=== PATIENT | male | born 1955 | race Caucasian/White ===

== ENCOUNTER 2018-06-25 15:03 | Observation (INO) ==
--- NOTE | 2018-06-25 18:20 | ED ---
HPI General Chief complaint: Skin/Abscess/Foreign Body Stated complaint: Leg pain Time Seen by Provider: 06/25/18 18:18 Source: patient Mode of arrival: ambulatory Limitations: no limitations History of Present Illness HPI narrative: Patient has mass that he is had over his right lateral mid thigh I ongoing for the past 10 years or so. Patient since last night started to feel sharp pain over the right lateral mass. Patient rates it as a 10 out of 10 pain, sharp... Patient stated that he has never had pain from this lump and so he never has had it checked out. Patient has no primary care decision. Denies any previous surgeries and also denies any previous allergy to medications. Onset (ago): year(s) Location: right and lower extremity Radiation: non-radiation Severity: severe Severity scale (1-10): 8 Quality: sharp Pain Consistency: constant Relieving factors: none Exacerbating factors: none and movement Associated symptoms: denies other symptoms Treatments prior to arrival: none Related Data Home Medications Medication Instructions Recorded Confirmed No Known Home Medications 06/25/18 06/25/18 Previous Rx's Medication Instructions Recorded cephalexin 500 mg PO Q8HR 10 Days cap 06/27/18 hydrocodone-acetaminophen 1 tab PO Q4H PRN #15 tab 06/27/18 Allergies Allergy/AdvReac Type Severity Reaction Status Date / Time No Known Allergies Allergy Verified 06/26/18 07:21 Review of Systems ROS: all other systems reviewed are negative PMFSH History History Provided By: Patient Family History Family History Brother Head and neck cancer Brother Head and neck cancer Mother Family history of [place] (myocardial infarction) Father Diabetes mellitus Social History Social History Substance History: No History of Abuse Second Hand Smoke Exposure: Yes (friends) Smoking Status: Current every day smoker Tobacco Type: Cigarettes How Often Do You Have a Drink Containing Alcohol: 4 or more times a week Recent Travel in [place] within the Last 8 Weeks: No Recent Out of Country Travel within the Last 8 Weeks: No Exam Narrative Exam Narrative: GENERAL: Well-nourished, well-developed patient in no apparent distress. SKIN: Warm and dry. HEAD: Atraumatic. Normocephalic. EYES: Pupils equal and round. No scleral icterus. No injection or drainage. ENT: No nasal bleeding or discharge. Mucous membranes pink and moist. NECK: Trachea midline. No JVD. CARDIOVASCULAR: Regular rate and rhythm. no rubs or gallops RESPIRATORY: No accessory muscle use. Clear to auscultation. Breath sounds equal bilaterally. GASTROINTESTINAL: Abdomen soft, non-tender, nondistended. No rebound or guarding MUSCULOSKELETAL: Extremities without clubbing, cyanosis, or edema. No obvious deformities. Patient has a 30 cm x 18 centimeter oblong shaped mass over the mid lateral femur exquisitely tender and unable to examine much better NEUROLOGICAL: Awake and alert. No obvious cranial nerve deficits. Motor grossly within normal limits. Five out of 5 muscle strength in the arms and legs. Normal speech. PSYCHIATRIC: Appropriate mood and affect; insight and judgment normal. Course Initial Documented Vital Signs Temperature 97.3 F L 06/25/18 15:21 Pulse Rate 64 06/25/18 15:21 Respiratory Rate 16 06/25/18 15:21 Blood Pressure 141/73 H 06/25/18 15:21 Pulse Oximetry 99 06/25/18 15:21 Last Documented Vital Signs Temperature 97.8 F 06/27/18 12:00 Pulse Rate 88 06/27/18 12:00 Respiratory Rate 18 06/27/18 12:00 Blood Pressure 108/61 06/27/18 12:00 Pulse Oximetry 98 06/27/18 12:00 Sign Out Sign Out Data: Patient Sign Out occurred on 06/25/18 at 19:40. Patient's care was discussed, and care was transferred from Dony Felix to Diomedes Patel DO. Sign Out Comment: PATIENT HAS A LARGE RIGHT LATERAL MID FEMUR MASS FOR 10 YRS GROWING..BUT NOW PAINFUL FOR LAST 2 DAYS, PENDING LABS/CT AND DISPO Last updated by Dony Felix at 06/25/18 18:57 Medical Decision Making MDM Narrative Medical decision making narrative: Patient with large cystic mass on the right lateral thigh confirmed by CT. Will be admitted for surgical consultation and removal. Medical Screen Exam Complete: Yes Emergency Medical Condition: Yes Differential Diagnosis Differential Diagnosis: Cancer versus atypical lipoma versus myosarcoma versus liposarcoma versus bone cancer versus abscess versus cellulitis Medical Records Medical records reviewed: Yes I reviewed the patient's medical records. No previous records available on [facility] Lab Data Lab results reviewed: Yes I reviewed the patient's lab results. Result diagrams: 06/27/18 09:18 08/23/18 09:18 Lab Results 06/25/18 06/25/18 06/25/18 Range/Units 19:28 19:28 19:28 WBC 9.0 (4.0-11.0) th/mm3 RBC 4.88 (4.50-5.90) mil/mm3 Hgb 14.7 (13.0-17.0) gm/dL Hct 43.6 (39.0-51.0) % MCV 89.3 (80.0-100.0) fL MCH 30.1 (27.0-34.0) pg MCHC 33.7 (32.0-36.0) % RDW 13.5 (11.6-17.2) % Plt Count 314 (150-450) th/mm3 MPV 9.2 (7.0-11.0) fL Neut % (Auto) 78.6 H (16.0-70.0) % Lymph % (Auto) 11.7 (9.0-44.0) % Garrett % (Auto) 9.2 H (0.0-8.0) % Eos % (Auto) 0.2 (0.0-4.0) % Baso % (Auto) 0.3 (0.0-2.0) % Neut # (Auto) 7.1 (1.8-7.7) th/mm3 Lymph # (Auto) 1.1 (1.0-4.8) th/mm3 Garrett # (Auto) 0.8 (0.0-0.9) th/mm3 Eos # (Auto) 0.0 (0.0-0.4) th/mm3 Baso # (Auto) 0.0 (0.0-0.2) th/mm3 WBC Differential . Differential Comment Auto diff final PT 10.0 (9.8-11.6) sec INR 1.0 Ratio APTT 26.1 (24.3-30.1) sec Sodium (136-145) meq/L Potassium (3.5-5.1) meq/L Chloride (98-107) meq/L Carbon Dioxide (21.0-32.0) meq/L Anion Gap (5-15) meq/L BUN (7-18) mg/dL Creatinine (0.60-1.30) mg/dL Estimated GFR (>89) mL/min Random Glucose (74-106) mg/dL Calcium (8.5-10.1) mg/dL Total Bilirubin (0.2-1.0) mg/dL AST (15-37) U/L ALT (12-78) U/L Alkaline Phosphatase (45-117) U/L Total Protein (6.4-8.2) g/dL Albumin (3.4-5.0) g/dL Lipase 157 (73-393) U/L 06/25/18 06/27/18 06/27/18 Range/Units 19:28 09:18 09:18 WBC 5.5 (4.0-11.0) th/mm3 RBC 4.35 L (4.50-5.90) mil/mm3 Hgb 13.0 (13.0-17.0) gm/dL Hct 39.3 (39.0-51.0) % MCV 90.2 (80.0-100.0) fL MCH 30.0 (27.0-34.0) pg MCHC 33.2 (32.0-36.0) % RDW 13.7 (11.6-17.2) % Plt Count 246 (150-450) th/mm3 MPV 8.8 (7.0-11.0) fL Neut % (Auto) 78.4 H (16.0-70.0) % Lymph % (Auto) 9.2 (9.0-44.0) % Garrett % (Auto) 10.8 H (0.0-8.0) % Eos % (Auto) 1.2 (0.0-4.0) % Baso % (Auto) 0.4 (0.0-2.0) % Neut # (Auto) 4.3 (1.8-7.7) th/mm3 Lymph # (Auto) 0.5 L (1.0-4.8) th/mm3 Garrett # (Auto) 0.6 (0.0-0.9) th/mm3 Eos # (Auto) 0.1 (0.0-0.4) th/mm3 Baso # (Auto) 0.0 (0.0-0.2) th/mm3 WBC Differential . Differential Comment Auto diff final PT (9.8-11.6) sec INR Ratio APTT (24.3-30.1) sec Sodium 137 142 (136-145) meq/L Potassium 3.9 3.5 (3.5-5.1) meq/L Chloride 99 105 (98-107) meq/L Carbon Dioxide 24.9 27.0 (21.0-32.0) meq/L Anion Gap 13 10 (5-15) meq/L BUN 9 8 (7-18) mg/dL Creatinine 0.80 0.82 (0.60-1.30) mg/dL Estimated GFR Greater than 89 Greater than 89 (>89) mL/min Random Glucose 93 122 H (74-106) mg/dL Calcium 9.0 8.5 (8.5-10.1) mg/dL Total Bilirubin 0.9 0.7 (0.2-1.0) mg/dL AST 18 14 L (15-37) U/L ALT 20 15 (12-78) U/L Alkaline Phosphatase 72 59 (45-117) U/L Total Protein 8.2 6.5 D (6.4-8.2) g/dL Albumin 4.6 3.4 D (3.4-5.0) g/dL Lipase (73-393) U/L Imaging Data Radiologist's impression: Femur CT 06/25/18 18:53 CONCLUSION: 1. Greater than 16 cm subcutaneous lesion in the lateral thigh contains an air- fluid level and multiple flecks of gas. The findings suggest this lesion may be infected or necrotic. Chest X-Ray 06/25/18 18:54 CONCLUSION: The lungs are clear. Discharge Plan Discharge Disposition Patient Disposition: 30 Still Patient Discharge Condition Condition: Good Discharge Order Discharge Orders: Discharge Order (Routine); Ordered 06/27/18 Ordered By: Warren Blandon Discharge Details Anticipated Discharge Date: 06/27/18 Discharge Comment: Follow up with [facility] traffic control specialist Doctor Abdon Castro scheduled for 07/02/18 Diagnosis: Localized swelling, mass and lump, right lower limb Physicians Team ED Provider: Diomedes Patel Primary Care Provider: UNKNOWN, Attending Provider: Warren Blandon Other Providers: Abdon Castro Status ED Status: Left Department Discharge Information Discharge Date/Time: 06/26/18 10:45
[2018-06-25] MEDS ORDERED: Morphine Inj 4 MG/ML Vial IV.PUSH ONE (18:53)
--- NOTE | 2018-06-25 19:58 | XR ---
EXAM DATE: 06/25/2018 7:35 PM EDT AGE/SEX: 63 years / Male INDICATIONS: Evaluate lung status. Patient being seen for a femur abscess. CLINICAL DATA: This is the patient's initial encounter. Patient reports that signs and symptoms have been present for 1 week and indicates a pain score of 0/10. MEDICAL/SURGICAL HISTORY: None. None. COMPARISON: No prior exams available for comparison. FINDINGS: A single AP view of the chest demonstrates the lungs to be symmetrically aerated without evidence of mass, infiltrate or effusion. The cardiomediastinal contours are unremarkable. Osseous structures a re intact. CONCLUSION: The lungs are clear. Electronically signed by: Yassine Birmingham MD 06/25/2018 7:56 PM EDT
[2018-06-25 20:06] LABS: Baso % (Auto) 0.3 % (0.0-2.0); Eos % (Auto) 0.2 % (0.0-4.0); Hematocrit 43.6 % (39.0-51.0); Hemoglobin 14.7 gm/dL (13.0-17.0); Lymph # (Auto) 1.1 th/mm3 (1.0-4.8); Lymph % (Auto) 11.7 % (9.0-44.0); Mean Corpuscular HGB Conc 33.7 % (32.0-36.0); Mean Corpuscular Hemoglobin 30.1 pg (27.0-34.0); Mean Corpuscular Volume 89.3 fL (80.0-100.0); Mean Platelet Volume 9.2 fL (7.0-11.0); Mono # (Auto) 0.8 th/mm3 (0.0-0.9); Mono % (Auto) 9.2 % (0.0-8.0); Neut # (Auto) 7.1 th/mm3 (1.8-7.7); Neut % (Auto) 78.6 % (16.0-70.0); Platelet Count 314 th/mm3 (150-450); Red Blood Count 4.88 mil/mm3 (4.50-5.90); Red Cell Distribution Width 13.5 % (11.6-17.2)
[2018-06-25 20:13] LABS: Activated Partial Thrombo Time 26.1 sec (24.3-30.1)
[2018-06-25 20:26] LABS: Albumin 4.6 g/dL (3.4-5.0); Anion Gap 13 meq/L (5-15); Aspartate Aminotransferase 18 U/L (15-37); Blood Urea Nitrogen 9 mg/dL (7-18); Carbon Dioxide 24.9 meq/L (21.0-32.0); Chloride 99 meq/L (98-107); Glomerular Filtration Rate Greater Than 89 mL/min (>89); Glucose,Random 93 mg/dL (74-106); Potassium 3.9 meq/L (3.5-5.1); Sodium 137 meq/L (136-145)
[2018-06-25 20:29] LABS: Alanine Aminotransferase 20 U/L (12-78); Alkaline Phosphatase 72 U/L (45-117); Total Protein 8.2 g/dL (6.4-8.2)
--- NOTE | 2018-06-25 21:51 | CT ---
EXAM DATE: 06/25/2018 9:32 PM EDT AGE/SEX: 63 years / Male INDICATIONS: Painful mass on right femur. Patient states he has had it for eleven years but it has n ever been painful before. CLINICAL DATA: This is the patient's initial encounter. Patient reports that signs and symptoms have been present for > 1 year and indicates a pain score of 10/10. MEDICAL/SURGICAL HISTORY: None. None. RADIATION DOSE: 8.23 CTDI (mGy) COMPARISON: No prior exams available for comparison. TECHNIQUE: Multiple contiguous axial images were acquired using a multirow detector CT scanner after the intravenous administration of 85 ml Omnipaque 350 (iohexol) nonionic water-soluble contrast as a single exam dose. Multiplanar reconstruction was performed in the sagittal and coronal planes. Usi ng automated exposure control and adjustment of the mA and/or kV according to patient size, radiation dose was kept as low as reasonably achievable to obtain optimal diagnostic quality images. DICOM fo rmat image data is available electronically for review and comparison. FINDINGS: There is a mass in the lateral right mid thigh in the subcutaneous soft tissues which measures 16.8 cm in superior/inferior extent at 8.1 cm in width. The peripheral margins are smooth. There is an air -fluid level within this lesion and multiple flecks of gas within the fluid portion. There is a satel lite lesion present medial and posterior to the midportion which measures 2.5 cm, probably connecting to the main lesion, and also containing multiple flecks of gas. This lesion flattens the lateral thi gh musculature, but no evidence of extension into the musculature. The femur is grossly intact withou t evidence of periosteal reaction or deformity. CONCLUSION: 1. Greater than 16 cm subcutaneous lesion in the lateral thigh contains an air-fluid level and multi ple flecks of gas. The findings suggest this lesion may be infected or necrotic. Electronically signed by: Yassine Birmingham MD 06/25/2018 9:50 PM EDT
[2018-06-26] MEDS ORDERED: Bisacodyl 10 MG Supp RECTAL PRN (00:50)
[2018-06-26] MEDS ORDERED: Acetaminophen 325 MG Tablet PO PRN (00:50)
[2018-06-26] MEDS ORDERED: Temazepam 15 MG Capsule PO PRN (00:50)
[2018-06-26] MEDS ORDERED: Morphine Inj 4 MG/ML Vial IV.PUSH PRN (01:03)
[2018-06-26] MEDS ORDERED: HYDROmorphone PF Inj 2 MG/ML Vial IV.PUSH ONE (02:01)
[2018-06-26] MEDS ORDERED: Melatonin 5 MG Tablet PO PRN (02:02)
--- NOTE | 2018-06-26 02:04 | P.HPIM ---
History of Present Illness Service: [facility] Primary Care Physician: UNKNOWN Chief Complaint: Right upper thigh pain/mass History of Present Illness: Mr. Parker is a 63 y/o male with no significant medical history who presented to the ER on 06/25/18 complaining of severe pain and discoloration of a mass he' s had on his right thigh for 10 years. The patient was found to have a large mass on right lateral thigh in the subcutaneous tissue measuring > 16 cm with an air-fluid level and multiple flecks of gas on femur CT. The patient is seen in his ER room. He reports that he's had this mass on his right thigh for 10 years and it's "not really bothered" me. However, last night , he accidentally hit it against some furniture and it has been increasingly painful, become harder in consistency, and has become discolored since. IV morphine given in ER brought the pain from a 10/10 to a 5/10. Review of Systems All other systems reviewed negative except as stated in HPI PMFSH - History History Provided By: Patient, Family Member - Medical History Medical History: Medical History (Last Updated 06/26/18 @ 03:19 by KING Rodney) History of dental problems - Surgical History Surgical History: Surgical History (Last Updated 06/26/18 @ 03:23 by KING Rodney) No history of previous surgery - Family History Family History: Family History (Last Updated 06/26/18 @ 03:21 by KING Rodney) Brother Head and neck cancer Brother Head and neck cancer Mother Family history of [place] (myocardial infarction) Father Diabetes mellitus - Tobacco History Second Hand Smoke Exposure: Yes Tobacco Use In Past 30 Days: Yes Smoking Status: Current every day smoker Tobacco Type: Cigarettes - Alcohol History How Often Do You Have a Drink Containing Alcohol: 4 or more times a week (daily use - beer) - Travel History Recent Travel in the [place] Within the Last 8 Weeks: No Recent Travel Out of the Country Within the Last 8 Weeks: No - Immunization History Tetanus Immunization: >5 Years Medications and Allergies Active Medications: Active Medications Acetaminophen (Tylenol) 650 mg PO Q4H PRN PRN Reason: Temp > 100.4/pain Hydrocodone Bitart/Acetaminophen ([place] 5/325) 1 tab PO Q4H PRN PRN Reason: pain > 4 Al Hydroxide/Mg Hydroxide (Milk Of Magnesia Liq) 30 ml PO Q12H PRN PRN Reason: Mild Constipation Bisacodyl (Dulcolax Supp) 10 mg RECTAL DAILY PRN PRN Reason: SEVERE CONSITIPATION Hydromorphone HCl (Dilaudid Pf Inj) 1 mg IV.PUSH ONCE ONE Stop: 06/26/18 02:02 Melatonin (Melatonin) 5 mg PO HS PRN PRN Reason: INSOMNIA Morphine Sulfate (Morphine Inj) 2 mg IV.PUSH Q3H PRN PRN Reason: BREAKTHROUGH PAIN Ondansetron HCl (Zofran Inj) 4 mg IV.PUSH Q6H PRN PRN Reason: NAUSEA OR VOMITING Sennosides (Senokot) 17.2 mg PO Q12H PRN PRN Reason: Moderate Constipation Sodium Chloride (Ns Flush) 2 ml IV.FLUSH UNSCH PRN PRN Reason: FLUSH AFTER USING IV ACCESS Temazepam (Restoril) 15 mg PO HS PRN PRN Reason: INSOMNIA Allergies Allergy/AdvReac Type Severity Reaction Status Date / Time No Known Allergies Allergy Unverified 06/25/18 18:53 Home Medications Medication Instructions Recorded Confirmed Type No Known Home Medications 06/25/18 06/25/18 History Exam Vital signs: Vital Signs 06/25/18 15:21 Temperature 97.3 F L Pulse Rate 64 Respiratory Rate 16 Blood Pressure 141/73 H Pulse Oximetry 99 Intake & Output 06/25/18 06/25/18 06/26/18 06:59 18:59 06:59 Weight 68.039 kg - Constitutional no acute distress, thin - Routine Respiratory Exam Present: CTA bilaterally. Absent: wheezes, crackles - Routine Cardiovascular Exam Present: RRR, S1, S2. Absent: murmur, gallop, rubs - Routine Abdominal Exam Present: soft, normoactive bowel sounds. Absent: tenderness, distended - Routine Extremities Exam Present: pulses intact. Absent: edema Comments: large hard mass to right thigh with central area with purple discoloration and erythema on peripheral area. Not hot to touch. - Routine Skin Exam Present: dry, warm - Routine Neurological Exam Present: alert, oriented X3 Results - Labs CBC & Chem 7: 06/25/18 19:28 06/25/18 19:28 Labs: Short CBC 06/25/18 Range/Units 19:28 WBC 9.0 (4.0-11.0) th/mm3 Hgb 14.7 (13.0-17.0) gm/dL Hct 43.6 (39.0-51.0) % Plt Count 314 (150-450) th/mm3 BMP 06/25/18 19:28 Sodium 137 Potassium 3.9 Chloride 99 Carbon Dioxide 24.9 BUN 9 Creatinine 0.80 Calcium 9.0 Liver Function 06/25/18 Range/Units 19:28 Total Bilirubin 0.9 (0.2-1.0) mg/dL AST 18 (15-37) U/L ALT 20 (12-78) U/L Alkaline Phosphatase 72 (45-117) U/L Albumin 4.6 (3.4-5.0) g/dL - Imaging Impressions Femur CT 06/25/18 18:53 CONCLUSION: 1. Greater than 16 cm subcutaneous lesion in the lateral thigh contains an air- fluid level and multiple flecks of gas. The findings suggest this lesion may be infected or necrotic. Chest X-Ray 06/25/18 18:54 CONCLUSION: The lungs are clear. Caprini VTE Risk Assessment Caprini VTE Risk Assessment: Moderate/High Risk (score >= 2) Caprini Risk Assessment Model: Point Value = 1 Point Value = 2 Point Value = 3 Point Value = 5 Age 41-60 Minor surgery BMI > 25 kg/m2 Swollen legs Varicose veins or History of unexplained or recurrent spontaneous Oral contraceptives or hormone replacement Sepsis (< 1 month) Serious lung disease, including pneumonia (< 1 month) Abnormal pulmonary function Acute myocardial infarction Congestive heart failure (< 1 month) History of inflammatory bowel disease Medical patient at bed rest Age 61-74 Arthroscopic surgery Major open surgery (> 45 min) Laparoscopic surgery (> 45 min) Malignancy Confined to bed (> 72 hours) Immobilizing plaster cast Central venous access Age >= 75 History of VTE Family history of VTE Factor V Leiden Prothrombin [id number] Lupus anticoagulant Anticardiolipin antibodies Elevated serum homocysteine Heparin-induced thrombocytopenia Other congenital or acquired thrombophilia Stroke (< 1 month) Elective arthroplasty Hip, pelvis, or leg fracture Acute spinal cord injury (< 1 month) Prophylaxis Regimen: Total Risk Factor Score Risk Level Prophylaxis Regimen 0-1 Low Early ambulation 2 Moderate Order ONE of the following: *Sequential Compression Device (SCD) *Heparin 5000 units SQ BID 3-4 Higher Order ONE of the following medications: *Heparin 5000 units SQ TID *Enoxaparin/Lovenox 40 mg SQ daily (WT < 150 kg, CrCl > 30 mL/min) *Enoxaparin/Lovenox 30 mg SQ daily (WT < 150 kg, CrCl > 10-29 mL/min) *Enoxaparin/Lovenox 30 mg SQ BID (WT < 150 kg, CrCl > 30 mL/min) AND/OR *Sequential Compression Device (SCD) 5 or more Highest Order ONE of the following medications: *Heparin 5000 units SQ TID (Preferred with Epidurals) *Enoxaparin/Lovenox 40 mg SQ daily (WT < 150 kg, CrCl > 30 mL/min) *Enoxaparin/Lovenox 30 mg SQ daily (WT < 150 kg, CrCl > 10-29 mL/min) *Enoxaparin/Lovenox 30 mg SQ BID (WT < 150 kg, CrCl > 30 mL/min) AND *Sequential Compression Device (SCD) Assessment and Plan - Plan Mr. Parker is a 63 y/o male with no significant medical history who presented to the ER on 06/25/18 complaining of severe pain and discoloration of a mass he' s had on his right thigh for 10 years. The patient was found to have a large mass on right lateral thigh in the subcutaneous tissue measuring > 16 cm with an air-fluid level and multiple flecks of gas on femur CT. Right thigh mass - consult orthopedic surgery to evaluate mass for possible surgical drainage - Analgesia: [place] 5/325 mg q4h prn, IV morphine for breakthrough - may need upward titration for adequate pain control Alcohol abuse - [facility] protocol DVT prophylaxis - SCDs Discussed Condition With: Patient, patient's , and Dr. Rivera
[2018-06-26] MEDS ORDERED: LORazepam 1 MG Tablet PO PRN (02:05)
[2018-06-26] MEDS ORDERED: Haloperidol Inj 5 MG/ML Ampul IV.PUSH PRN (02:05)
--- NOTE | 2018-06-26 08:40 | P.CONGS ---
HPI Gen Surgery Consult Note Consult date: 06/26/18 Reason for consult: other (RIGHT thigh mass) Requesting physician: Christy Chandler Narrative: This is a 63 year old male with no known past medical history who presents to the ED with complaints of RIGHT thigh pain to a mass that has been increasing in size over the past 10 years. It never caused him any pain until Sunday night when he bumped into the sharp corner of a desk. It did not puncture the area. He developed increase pain and bruising over the area. He denies any fever or chills. A General Surgery consultation has been requested for incision and drainage. Review of Systems Constitutional: Denies body ache(s), Denies chills, Denies fever(s) Eyes: Denies blurry vision Ears, Nose, Mouth, and Throat: Denies dizziness, Denies headache(s) Cardiovascular: Denies chest pain, Denies chest pain at rest, Denies chest pain with activity Respiratory: Denies chest congestion, Denies cough Gastrointestinal: Denies abdominal pain, Denies nausea, Denies vomiting Genitourinary: Denies urinary frequency Musculoskeletal: Reports other (RIGHT thigh pain ) Skin/Breast: Reports unusual bruising (RIGHT thigh ), Denies bleeding lesions Neurologic: Denies numbness, Denies restless legs Psychiatric: Denies anxiety, Denies depression Endocrine: Denies cold intolerance, Denies heat intolerance Hematologic/Lymphatic: Denies easy bleeding Allergic/Immunologic: Denies GI upset with certain foods PMFSH - History History Provided By: Patient - Medical History Medical History: Medical History (Last Reviewed 06/26/18 @ 08:37 by KING Govea) History of dental problems No significant medical problems - Surgical History Surgical History: Surgical History (Last Reviewed 06/26/18 @ 08:37 by KING Govea) No history of previous surgery - Family History Family History: Family History (Last Updated 06/26/18 @ 03:21 by KING Rodney) Brother Head and neck cancer Brother Head and neck cancer Mother Family history of VT (myocardial infarction) Father Diabetes mellitus - Tobacco History Second Hand Smoke Exposure: Yes (friends) Tobacco Use In Past 30 Days: Yes Smoking Status: Current every day smoker Tobacco Type: Cigarettes - Alcohol History How Often Do You Have a Drink Containing Alcohol: 4 or more times a week - Substance Use History Substance History: No History of Abuse - Travel History Recent Travel in the [place] Within the Last 8 Weeks: No Recent Travel Out of the Country Within the Last 8 Weeks: No - Immunization History Tetanus Immunization: >5 Years Hx Influenza Vaccine This Season: No Medications and Allergies Active Medications: Active Medications Acetaminophen (Tylenol) 650 mg PO Q4H PRN PRN Reason: Temp > 100.4/pain Al Hydroxide/Mg Hydroxide (Milk Of Magnesia Liq) 30 ml PO Q12H PRN PRN Reason: Mild Constipation Bisacodyl (Dulcolax Supp) 10 mg RECTAL DAILY PRN PRN Reason: SEVERE CONSITIPATION Flumazenil (Romazecon Inj) 0.2 mg IV.PUSH Q1M PRN PRN Reason: OVERSEDATION Haloperidol Lactate (Haldol Inj) 1 mg IV.PUSH Q15M PRN PRN Reason: for severe agitation Hydromorphone HCl (Dilaudid Pf Inj) 1 mg IV.PUSH Q3H PRN PRN Reason: pain > 5 Lorazepam (Ativan) 1 mg PO Q4H PRN PRN Reason: for CIWA 8-10 Lorazepam (Ativan) 2 mg PO Q2H PRN PRN Reason: for CIWA 11-14 Lorazepam (Ativan Inj) 2 mg IV.PUSH Q2H PRN PRN Reason: for CIWA 11-14 Lorazepam (Ativan Inj) 2 mg IV.PUSH Q1H PRN PRN Reason: for CIWA 15-20 Lorazepam (Ativan Inj) 1 mg IV.PUSH Q4H PRN PRN Reason: for CIWA 8-10 Lorazepam (Ativan Inj) 2 mg IV.PUSH Q15M PRN PRN Reason: for CIWA > 20 Melatonin (Melatonin) 5 mg PO HS PRN PRN Reason: INSOMNIA Ondansetron HCl (Zofran Inj) 4 mg IV.PUSH Q6H PRN PRN Reason: NAUSEA OR VOMITING Sennosides (Senokot) 17.2 mg PO Q12H PRN PRN Reason: Moderate Constipation Sodium Chloride (Ns Flush) 2 ml IV.FLUSH UNSCH PRN PRN Reason: FLUSH AFTER USING IV ACCESS Allergies Allergy/AdvReac Type Severity Reaction Status Date / Time No Known Allergies Allergy Verified 06/26/18 07:21 Home Medications Medication Instructions Recorded Confirmed Type No Known Home Medications 06/25/18 06/25/18 History Exam Vital signs: Vital Signs 06/25/18 15:21 06/26/18 03:30 06/26/18 07:10 Temperature 97.3 F L 98.1 F Pulse Rate 64 68 Respiratory Rate 16 15 18 Blood Pressure 141/73 H 102/67 Pulse Oximetry 99 99 06/26/18 07:30 Temperature 98 F Pulse Rate 66 Respiratory Rate 17 Blood Pressure 106/71 Pulse Oximetry 99 Intake & Output 06/25/18 06/26/18 06/26/18 18:59 06:59 18:59 Weight 68.039 kg Narrative: GENERAL: Alert and awake 63 year old male resting in bed in no acute distress. SKIN: Large RIGHT lateral mass with swelling and bruising; no puncture site; no drainage; tender. HEAD: Atraumatic. Normocephalic. EYES: Pupils equal and round. No scleral icterus. No injection or drainage. ENT: No nasal bleeding or discharge. Mucous membranes pink and moist. NECK: Trachea midline. CARDIOVASCULAR: Regular rate and rhythm. RESPIRATORY: No accessory muscle use. Clear to auscultation. Breath sounds equal bilaterally. GASTROINTESTINAL: Abdomen soft, non-tender, nondistended. MUSCULOSKELETAL: Extremities without clubbing, cyanosis, or edema. No obvious deformities except what is noted above under skin. NEUROLOGICAL: Awake and alert. No obvious cranial nerve deficits. Motor grossly within normal limits. Five out of 5 muscle strength in the arms and legs. Normal speech. PSYCHIATRIC: Appropriate mood and affect; insight and judgment normal. Results - Labs 06/25/18 19:28 06/25/18 19: Laboratory Results WBC 9.0 th/mm3 (4.0-11.0) 06/25/18 19: RBC 4.88 mil/mm3 (4.50-5.90) 06/25/18: Hgb 14.7 gm/dL (13.0-17.0) 06/25/18: Hct 43.6 % (39.0-51.0) 06/25/18 19: MCV 89.3 fL (80.0-100.0) 06/25/18: MCH 30.1 pg (27.0-34.0) 06/25/18 19: MCHC 33.7 % (32.0-36.0) 06/25/18: RDW 13.5 % (11.6-17.2) 06/25/18: Plt Count 314 th/mm3 (150-450) 06/25/18: MPV 9.2 fL (7.0-11.0) 06/25/18: Neut % (Auto) 78.6 % (16.0-70.0) H 06/25/18: Lymph % (Auto) 11.7 % (9.0-44.0) 06/25/18: [place] % (Auto) 9.2 % (0.0-8.0) H 06/25/18: Eos % (Auto) 0.2 % (0.0-4.0) 06/25/18 Baso % (Auto) 0.3 % (0.0-2.0) 06/25/18 Neut # (Auto) 7.1 th/mm3 (1.8-7.7) 06/25/18: Lymph # (Auto) 1.1 th/mm3 (1.0-4.8) 06/25/18: [place] # (Auto) 0.8 th/mm3 (0.0-0.9) 06/25/18: Eos # (Auto) 0.0 th/mm3 (0.0-0.4) 06/25/18 Baso # (Auto) 0.0 th/mm3 (0.0-0.2) 06/25/18 WBC Differential . 06/25/18 Differential Comment Auto diff final 06/25/18 PT 10.0 sec (9.8-11.6) 06/25/18: INR 1.0 Ratio 06/25/18: APTT 26.1 sec (24.3-30.1) 06/25/18: Sodium 137 meq/L (136-145) 06/25/18: Potassium 3.9 meq/L (3.5-5.1) 06/25/18: Chloride 99 meq/L (98-107) 08/21/18 19:28 Carbon Dioxide 24.9 meq/L (21.0-32.0) 06/25/18 19:28 Anion Gap 13 meq/L (5-15) 06/25/18 19:28 BUN 9 mg/dL (7-18) 06/25/18 19:28 Creatinine 0.80 mg/dL (0.60-1.30) 06/25/18 19:28 Estimated GFR Greater than 89 mL/min (>89) 06/25/18 19:28 Random Glucose 93 mg/dL (74-106) 06/25/18 19:28 Calcium 9.0 mg/dL (8.5-10.1) 06/25/18 19: Total Bilirubin 0.9 mg/dL (0.2-1.0) 06/25/18: AST 18 U/L (15-37) 06/25/18 19: ALT 20 U/L (12-78) 06/25/18 19:28 Alkaline Phosphatase 72 U/L (45-117) 06/25/18 19:28 Total Protein 8.2 g/dL (6.4-8.2) 06/25/18 19: Albumin 4.6 g/dL (3.4-5.0) 06/25/18 19: Lipase 157 U/L (73-393) 06/25/18 19:[address] 06/25/18 18:53 CONCLUSION: 1. Greater than 16 cm subcutaneous lesion in the lateral thigh contains an air- fluid level and multiple flecks of gas. The findings suggest this lesion may be infected or necrotic. Chest X-Ray 06/25/18 18:54 CONCLUSION: The lungs are clear. - Imaging Additional studies: CT femur Assessment and Plan - Assessment (1) Localized swelling, mass and lump, right lower limb Code(s): R22.41 - Localized swelling, mass and lump, right lower limb Status: Acute Plan: 63 year old male with large RIGHT lateral leg mass -Plan for incision and drainage of RIGHT thigh mass today with possible drain placement today -NPO -Ancef -Explained procedure in detail and all questions answered -Thank you for this consult; We will continue to follow - Plan Discussed Condition With: Dr. Gloria Parker
--- NOTE | 2018-06-26 09:19 | P.PN ---
Subjective Interval history: seen with at bedside pain right thigh causing having difficulty ambulation due to pain no fever or chills Physical Exam Vital signs: Vital Signs 06/25/18 15:21 06/26/18 03:30 06/26/18 07:10 Temperature 97.3 F L 98.1 F Pulse Rate 64 68 Respiratory Rate 16 15 18 Blood Pressure 141/73 H 102/67 Pulse Oximetry 99 99 06/26/18 07:30 Temperature 98 F Pulse Rate 66 Respiratory Rate 17 Blood Pressure 106/71 Pulse Oximetry 99 Intake & Output 06/25/18 06/26/18 06/26/18 18:59 06:59 18:59 Weight 68.039 kg Narrative: awaek and alert, no acute distress anicteric lungs- no rales, no wheezes regular rhythm abdomen soft, good bowel sounds right thigh- huge soft fluctuant subcutaneous mass- with mild erythema, purplish discoloration , tender to touch good peripheral pulses moves all extremities smpontaeoeuly, right leg limited by pain and weight of the mass Results - Labs CBC & Chem 7: 06/25/18 19:28 06/25/18 19:28 Laboratory Results - last 24 hr 06/25/18 06/25/18 06/25/18 19:28 19:28 19:28 WBC 9.0 RBC 4.88 Hgb 14.7 Hct 43.6 MCV 89.3 MCH 30.1 MCHC 33.7 RDW 13.5 Plt Count 314 MPV 9.2 Neut % (Auto) 78.6 H Lymph % (Auto) 11.7 [place] % (Auto) 9.2 H Eos % (Auto) 0.2 Baso % (Auto) 0.3 Neut # (Auto) 7.1 Lymph # (Auto) 1.1 [place] # (Auto) 0.8 Eos # (Auto) 0.0 Baso # (Auto) 0.0 WBC Differential . Differential Comment Auto diff final PT 10.0 INR 1.0 APTT 26.1 Sodium Potassium Chloride Carbon Dioxide Anion Gap BUN Creatinine Estimated GFR Random Glucose Calcium Total Bilirubin AST ALT Alkaline Phosphatase Total Protein Albumin Lipase 157 06/25/18 19:28 WBC RBC Hgb Hct MCV MCH MCHC RDW Plt Count MPV Neut % (Auto) Lymph % (Auto) [place] % (Auto) Eos % (Auto) Baso % (Auto) Neut # (Auto) Lymph # (Auto) [place] # (Auto) Eos # (Auto) Baso # (Auto) WBC Differential Differential Comment PT INR APTT Sodium 137 Potassium 3.9 Chloride 99 Carbon Dioxide 24.9 Anion Gap 13 BUN 9 Creatinine 0.80 Estimated GFR Greater than 89 Random Glucose 93 Calcium 9.0 Total Bilirubin 0.9 AST 18 ALT 20 Alkaline Phosphatase 72 Total Protein 8.2 Albumin 4.6 Lipase - Imaging Impressions Femur CT 06/25/18 18:53 CONCLUSION: 1. Greater than 16 cm subcutaneous lesion in the lateral thigh contains an air- fluid level and multiple flecks of gas. The findings suggest this lesion may be infected or necrotic. Chest X-Ray 06/25/18 18:54 CONCLUSION: The lungs are clear. Assessment and Plan - Plan 63 years old male Mr. Parker is a 63 y/o male with no significant medical history who presented to the ER on 06/25/18 complaining of severe pain and discoloration of a mass he' s had on his right thigh for 10 years. Up until recently not bothering him till few days ago patient while turning on the couch hit a hard surface bumped this mass - and since- increase pain The patient was found to have a large mass on right lateral thigh in the subcutaneous tissue measuring > 16 cm with an air-fluid level and multiple flecks of gas on femur CT. Right thigh subcutaneous soft mass/cyst - possible abscess- chronic for 10 years now with increasing pain -r/o hemorrhagic conversion of mass/cyst with recent bump + air/fluid level on CT, no fever no chills - GS saw patient and taking him to OR today and possible VAC placement - send cultures for studies , gram stain, C and s, cytology - d/w Dr. luis - Analgesia: [place] 5/325 mg q4h prn, IV morphine for breakthrough - may need upward titration for adequate pain control - we will hold off on IV antiobitcs till after surgery and till specimen sent- s/w Pharmacy to cancel IV ancef for now - PT eval and treat Alcohol abuse - [place] protocol - per - drinks 4-5 beers daily DVT prophylaxis -
[2018-06-26] MEDS ORDERED: ceFAZolin Inj 2,000 MG in Sodium Chlor 0.9% Inj 100 ML IV.SIG SCH ×2 (09:30→10:00)
[2018-06-26] MEDS ORDERED: Chlorhexidine Gluconate 2% 1 Pack (2 Cloths) TOPICAL SCH (11:15)
[2018-06-26] MEDS ORDERED: Metoprolol Tartrate 25 MG Tablet PO SCH (11:15)
[2018-06-26] MEDS ORDERED: ceFAZolin 2 GM Premix Inj 2 GM/100 ML BAG IV.SIG ONE (11:15)
[2018-06-26] MEDS ORDERED: Bupivacaine/Epinephrine PF Inj 0.25% 10 ML Vial ONE (11:28)
[2018-06-26] MEDS ORDERED: Lidocaine PF 1% Inj 5 ML Syringe INFILTRATN ONE (11:39)
[2018-06-26] MEDS ORDERED: Succinylcholine Inj 100 MG/5 ML Syringe IV.PUSH ONE (11:39)
[2018-06-26] MEDS ORDERED: Sodium Chlor 0.9% Inj 500 ML IV.SIG SCH (12:00)
[2018-06-26] MEDS ORDERED: fentaNYL Citrate Inj 100 MCG/2 ML Ampul ONE (12:35)
--- NOTE | 2018-06-26 13:38 | MP ---
cc: Abdon Castro MD DATE OF OPERATION: 06/26/2018 PREOPERATIVE DIAGNOSIS: A 20 cm x 12 cm mass, right thigh; probable abscess. POSTOPERATIVE DIAGNOSES: 1. A 20 cm x 12 cm mass, right thigh; probable abscess. 2. Giant sebaceous cyst. PROCEDURE PERFORMED: Incision and drainage of right lower extremity abscess with excision of sebaceous cyst wall. SURGEON: Abdon Castro MD ANESTHESIA: General endotracheal. COMPLICATIONS: None. INDICATIONS FOR PROCEDURE: Mr. Parker is a pleasant 63-year-old gentleman who presented to the emergency department with a 3-day history of increasing pain and swelling in his right thigh. He states the mass has been there for many years, but recently became more painful and swollen and quite larger. He was seen and evaluated in the emergency department. CT scan demonstrated a very large right thigh mass consistent with abscess or necrotic tumor. Orthopedics was consulted and denied the consultation. General Surgery was consulted and I came to see the patient immediately. The patient was offered immediate I and D. Risks and benefits of I and D was discussed with him and his at the bedside, and they were agreeable. DETAILS OF PROCEDURE: The patient was identified, brought to the operating room, placed supine on the operating table. After adequate general endotracheal anesthesia was achieved, the right leg was prepped and draped in standard surgical fashion. A 0.25% Marcaine was injected in the skin and subcutaneous tissue directly overlying the mass. A longitudinal incision was made. Immediately a large amount of sebaceous material that appeared to be infected came forth. We got out over a liter of creamy white material. Once we did this, we extended the skin incision. Directly overlying the area there were some ischemic change of the skin. I elected to go ahead and resect all the ischemic areas back to healthy skin tissue. An elliptical incision was made and all necrotic and compromised skin and fat was excised. Next, the wound was copiously irrigated with normal saline solution. We could see the cyst lining clearly. The cyst lining was carefully dissected off of surrounding subcutaneous fat using blunt and sharp dissection circumferentially until the entire cyst wall was removed. Please note, the cyst measured in excess of 18 cm in length and about 10 cm in width. It went all the way down to the musculature of the right leg. The cyst was excised widely and the cyst wall discarded. The wound was then copiously irrigated with peroxide, followed by Betadine, followed by 3 liters of warm saline solution. An 18-[place] Dre drain was then inserted through a stab wound in the right lower thigh. It was coiled in the large abscess cavity. The wound was then closed in 2 layers using a 3-0 Vicryl and 3-0 nylon. Drain was secured with 3-0 nylon. The patient tolerated the procedure well, was awakened and brought to the recovery room in stable condition. Abdon MD JESUS MANUEL Mcdermott/vanna , 12:31 PM , 12:39 PM
[2018-06-26] MEDS: HYDROmorphone PF Inj 2 MG/ML Vial IV.PUSH PRN ×2 (20:33→23:43)
--- NOTE | 2018-06-26 21:13 | ECG ---
Date Performed: 06/26/2018 Time Performed: 11:14:58 PTAGE: 63 years EKG: Sinus rhythm NORMAL ECG NO PREVIOUS TRACING DOCTOR: Marco Mcarthur Interpretating Date/Time 06/26/2018 21:12:21
[2018-06-27] MEDS: HYDROmorphone PF Inj 2 MG/ML Vial IV.PUSH PRN (09:40)
[2018-06-27 10:26] LABS: Baso % (Auto) 0.4 % (0.0-2.0); Eos # (Auto) 0.1 th/mm3 (0.0-0.4); Eos % (Auto) 1.2 % (0.0-4.0); Hematocrit 39.3 % (39.0-51.0); Lymph # (Auto) 0.5 th/mm3 (1.0-4.8); Lymph % (Auto) 9.2 % (9.0-44.0); Mean Corpuscular HGB Conc 33.2 % (32.0-36.0); Mean Corpuscular Volume 90.2 fL (80.0-100.0); Mean Platelet Volume 8.8 fL (7.0-11.0); Mono # (Auto) 0.6 th/mm3 (0.0-0.9); Mono % (Auto) 10.8 % (0.0-8.0); Neut # (Auto) 4.3 th/mm3 (1.8-7.7); Neut % (Auto) 78.4 % (16.0-70.0); Platelet Count 246 th/mm3 (150-450); Red Blood Count 4.35 mil/mm3 (4.50-5.90); Red Cell Distribution Width 13.7 % (11.6-17.2); White Blood Count 5.5 th/mm3 (4.0-11.0)
--- NOTE | 2018-06-27 10:27 | P.PNGS ---
Subjective Interval history: Resting in bed; painful in RIGHT leg; wants regular diet Physical Exam Vital signs: Vital Signs 06/26/18 10:45 06/26/18 12:30 06/26/18 12:45 Temperature 97.8 F 98 F Pulse Rate 69 88 72 Respiratory Rate 16 16 16 Blood Pressure 133/71 100/61 98/61 L Pulse Oximetry 100 100 06/26/18 13:00 06/26/18 13:15 06/26/18 13:30 Temperature Pulse Rate 70 67 67 Respiratory Rate 16 16 16 Blood Pressure 98/62 L 104/66 104/78 Pulse Oximetry 100 100 97 06/26/18 13:45 06/26/18 14:15 06/26/18 14:30 Temperature 98 F Pulse Rate 67 88 88 Respiratory Rate 16 16 Blood Pressure 110/63 110/63 Pulse Oximetry 97 97 06/26/18 17:00 06/26/18 20:00 06/27/18 00:00 Temperature 97.8 F 98.1 F 97.8 F Pulse Rate 68 89 81 Respiratory Rate 17 18 18 Blood Pressure 121/65 96/58 L 98/64 L Pulse Oximetry 98 99 99 06/27/18 04:20 06/27/18 08:00 Temperature 97.5 F L 98.5 F Pulse Rate 72 83 Respiratory Rate 18 17 Blood Pressure 94/64 L 85/47 L Pulse Oximetry 97 96 Intake & Output 06/26/18 06/27/18 06/27/18 18:59 06:59 18:59 Intake Total 1000 / 1000 1040 / 1040 Output Total 75 / 75 25 / 25 Balance 925 / 925 1015 / 1015 Weight 67.5 kg Intake: IV 1000 / 1000 100 / 100 LR 1000 mL Inj 1,000 ML @ 30 1000 / 1000 mls/hr IV.SIG .Q24H MA[facility]IN Rx#: [id number] Ancef Inj 1,000 MG In NS Inj 100 / 100 100 ML @ 200 mls/hr IV.SIG Q12H MAHIN Rx#:[id number] Oral 240 / 240 Other 700 / 700 Output: Wound Drainage 75 / 75 25 / 25 # 1 Right Lateral Thigh 75 / 75 25 / 25 Narrative: Alert and awake Cardio: RRR Resp: CTAB Abd: soft non tender RIGHT leg---incision c/d/i; GREGORY with serosanguineous drainage Assessment and Plan - Assessment (1) Localized swelling, mass and lump, right lower limb Code(s): R22.41 - Localized swelling, mass and lump, right lower limb Status: Acute Plan: 63 year old male with large RIGHT lateral leg mass -POD1 I&D with drain placement of RIGHT leg -Transition to PO antibiotics -Regular diet -GS clear for DC -Follow up in office on Sunday -Rx for pain and antibiotics on chart
[2018-06-27 11:05] LABS: Alanine Aminotransferase 15 U/L (12-78); Albumin 3.4 g/dL (3.4-5.0); Alkaline Phosphatase 59 U/L (45-117); Anion Gap 10 meq/L (5-15); Aspartate Aminotransferase 14 U/L (15-37); Blood Urea Nitrogen 8 mg/dL (7-18); Calcium 8.5 mg/dL (8.5-10.1); Chloride 105 meq/L (98-107); Glomerular Filtration Rate Greater Than 89 mL/min (>89); Glucose,Random 122 mg/dL (74-106); Potassium 3.5 meq/L (3.5-5.1); Sodium 142 meq/L (136-145); Total Protein 6.5 g/dL (6.4-8.2)
[2018-06-27 12:54] VITALS: BP 108/61; PULSE 88; RESP 18; TEMP 97.8; O2SAT 98
--- NOTE | 2018-06-27 13:09 | P.PN ---
Subjective Interval history: seen with at bedside pain right thigh causing having difficulty ambulation due to pain Patient status post surgery on his Right thigh with GREGORY in place draining serosanguineous fluid, was recommended for discharge by General Surgery. Physical Exam Vital signs: Vital Signs 06/26/18 13:15 06/26/18 13:30 06/26/18 13:45 Temperature Pulse Rate 67 67 67 Respiratory Rate 16 16 16 Blood Pressure 104/66 104/78 110/63 Pulse Oximetry 100 97 97 06/26/18 14:15 06/26/18 14:30 06/26/18 17:00 Temperature 98 F 97.8 F Pulse Rate 88 88 68 Respiratory Rate 16 17 Blood Pressure 110/63 121/65 Pulse Oximetry 97 98 06/26/18 20:00 06/27/18 00:00 06/27/18 04:20 Temperature 98.1 F 97.8 F 97.5 F L Pulse Rate 89 81 72 Respiratory Rate 18 18 18 Blood Pressure 96/58 L 98/64 L 94/64 L Pulse Oximetry 99 99 97 06/27/18 08:00 06/27/18 12:00 Temperature 98.5 F 97.8 F Pulse Rate 83 88 Respiratory Rate 17 18 Blood Pressure 85/47 L 108/61 Pulse Oximetry 96 98 Intake & Output 06/26/18 06/27/18 06/27/18 18:59 06:59 18:59 Intake Total 1000 / 1000 1040 / 1040 100 / 100 Output Total 75 / 75 25 / 25 Balance 925 / 925 1015 / 1015 100 / 100 Weight 67.5 kg Intake: IV 1000 / 1000 100 / 100 100 / 100 LR 1000 mL Inj 1,000 ML @ 30 1000 / 1000 mls/hr IV.SIG .Q24H MAHNI Rx#: [id number] Ancef Inj 1,000 MG In NS Inj 100 / 100 100 / 100 100 ML @ 200 mls/hr IV.SIG Q12H MAHIN Rx#:[id number] Oral 240 / 240 Other 700 / 700 Output: Wound Drainage 75 / 75 25 / 25 # 1 Right Lateral Thigh 75 / 75 25 / 25 Narrative: GENERAL: This is a well-nourished, well-developed patient, in no apparent distress. CARDIOVASCULAR: Regular rate and rhythm without murmurs, gallops, or rubs. RESPIRATORY: Clear to auscultation. Breath sounds equal bilaterally. No wheezes , rales, or rhonchi. GASTROINTESTINAL: Abdomen soft, non-tender, nondistended. Normal active bowel sounds MUSCULOSKELETAL: Incision clean, GREG[place] with serosanguineous drainage. NEURO: Alert & Oriented x4 to person, place, time, situation. Moves all ext x4 Results - Labs CBC & Chem 7: 06/27/18 09:18 06/27/18 09:18 Laboratory Results - last 24 hr 06/27/18 06/27/18 09:18 09:18 WBC 5.5 RBC 4.35 L Hgb 13.0 Hct 39.3 MCV 90.2 MCH 30.0 MCHC 33.2 RDW 13.7 Plt Count 246 MPV 8.8 Neut % (Auto) 78.4 H Lymph % (Auto) 9.2 [place] % (Auto) 10.8 H Eos % (Auto) 1.2 Baso % (Auto) 0.4 Neut # (Auto) 4.3 Lymph # (Auto) 0.5 L [place] # (Auto) 0.6 Eos # (Auto) 0.1 Baso # (Auto) 0.0 WBC Differential . Differential Comment Auto diff final Sodium 142 Potassium 3.5 Chloride 105 Carbon Dioxide 27.0 Anion Gap 10 BUN 8 Creatinine 0.82 Estimated GFR Greater than 89 Random Glucose 122 H Calcium 8.5 Total Bilirubin 0.7 AST 14 L ALT 15 Alkaline Phosphatase 59 Total Protein 6.5 D Albumin 3.4 D Microbiology 06/26/18 11:40 Wound - Thigh Gram Stain - Final 06/26/18 11:40 Other Fungal Smear - Final No fungal elements seen - Imaging Femur CT 06/25/18 18:53 CONCLUSION: 1. Greater than 16 cm subcutaneous lesion in the lateral thigh contains an air- fluid level and multiple flecks of gas. The findings suggest this lesion may be infected or necrotic. Chest X-Ray 06/25/18 18:54 CONCLUSION: The lungs are clear. Assessment and Plan - Plan Mr. Parker is a 63 y/o male with no significant medical history who presented to the ER on 06/25/18 complaining of severe pain and discoloration of a mass he' s had on his right thigh for 10 years. Up until recently not bothering him till few days ago patient while turning on the couch hit a hard surface bumped this mass - and since- increase pain The patient was found to have a large mass on right lateral thigh in the subcutaneous tissue measuring > 16 cm with an air-fluid level and multiple flecks of gas on femur CT. status post surgery Right thigh subcutaneous soft mass/cyst - possible abscess- chronic for 10 years now with increasing pain -r/o hemorrhagic conversion of mass/cyst with recent bump + air/fluid level on CT, no fever no chills - send cultures for studies , gram stain, C and s, cytology - d/w Dr. luis - Continue Ancef by now, POD #1, with drainage in place, General Surgery Clear for discharge. antibiotics by mouth, follow on Sunday in office. Alcohol abuse - [facility] protocol - per - drinks 4-5 beers daily DVT prophylaxis - Code Status: Full Code. Discussed Condition With: Patient, his and nurse. Discharge Planning: Discharge Home.
--- NOTE | 2018-06-27 14:16 | P.DS ---
Date of admission: 06/26/18 00:50 Primary care physician: UNKNOWN Attending physician on discharge: Warren Blandon Anticipated date of discharge: 06/27/18 Brief History from admission: Mr. Parker is a 63 y/o male with no significant medical history who presented to the ER on 06/25/18 complaining of severe pain and discoloration of a mass he' s had on his right thigh for 10 years. The patient was found to have a large mass on right lateral thigh in the subcutaneous tissue measuring > 16 cm with an air-fluid level and multiple flecks of gas on femur CT. The patient is seen in his ER room. He reports that he's had this mass on his right thigh for 10 years and it's "not really bothered" me. However, last night , he accidentally hit it against some furniture and it has been increasingly painful, become harder in consistency, and has become discolored since. IV morphine given in ER brought the pain from a 10/10 to a 5/10. DS: Diagnosis - Discharge Diagnosis (1) Localized swelling, mass and lump, right lower limb Status: Acute DS: Medications - Discharge Medications Prescriptions: cephalexin 500 mg PO Q8HR 10 Days cap hydrocodone-acetaminophen 1 tab PO Q4H PRN #15 tab PRN Reason: acute post op pain exception DS: Summary Hospital Course: seen with at bedside pain right thigh causing having difficulty ambulation due to pain Patient status post surgery on his Right thigh with GREGORY in place draining serosanguineous fluid, was recommended for discharge by General Surgery. Assessment and Plan - Plan Mr. Parker is a 63 y/o male with no significant medical history who presented to the ER on 06/25/18 complaining of severe pain and discoloration of a mass he' s had on his right thigh for 10 years. Up until recently not bothering him till few days ago patient while turning on the couch hit a hard surface bumped this mass - and since- increase pain The patient was found to have a large mass on right lateral thigh in the subcutaneous tissue measuring > 16 cm with an air-fluid level and multiple flecks of gas on femur CT. status post surgery Right thigh subcutaneous soft mass/cyst - possible abscess- chronic for 10 years now with increasing pain -r/o hemorrhagic conversion of mass/cyst with recent bump + air/fluid level on CT, no fever no chills - send cultures for studies , gram stain, C and s, cytology - d/w Dr. castro - Continue Ancef by now, POD #1, with drainage in place, General Surgery Clear for discharge. antibiotics by mouth, follow on Sunday in office. Alcohol abuse - [facility] protocol - per - drinks 4-5 beers daily DVT prophylaxis - Code Status: Full Code. Discussed Condition With: Patient, his and nurse. Discharge Planning: Discharge Home. - Time Spent with Patient Total time spent providing and/or coordinating discharge services: Less than 30 minutes - Quality: VTE Deep Vein Thrombosis/Pulmonary Embolism Present on Admission: No Exam Vital signs: Vital Signs 06/26/18 14:15 06/26/18 14:30 06/26/18 17:00 Temperature 98 F 97.8 F Pulse Rate 88 88 68 Respiratory Rate 16 17 Blood Pressure 110/63 121/65 Pulse Oximetry 97 98 06/26/18 20:00 06/27/18 00:00 06/27/18 04:20 Temperature 98.1 F 97.8 F 97.5 F L Pulse Rate 89 81 72 Respiratory Rate 18 18 18 Blood Pressure 96/58 L 98/64 L 94/64 L Pulse Oximetry 99 99 97 06/27/18 08:00 06/27/18 12:00 Temperature 98.5 F 97.8 F Pulse Rate 83 88 Respiratory Rate 17 18 Blood Pressure 85/47 L 108/61 Pulse Oximetry 96 98 Intake & Output 06/26/18 06/27/18 06/27/18 18:59 06:59 18:59 Intake Total 1000 / 1000 1040 / 1040 100 / 100 Output Total 75 / 75 25 / 25 Balance 925 / 925 1015 / 1015 100 / 100 Weight 67.5 kg Intake: IV 1000 / 1000 100 / 100 100 / 100 LR 1000 mL Inj 1,000 ML @ 30 1000 / 1000 mls/hr IV.SIG .Q24H MAHIN Rx#: [id number] Ancef Inj 1,000 MG In NS Inj 100 / 100 100 / 100 100 ML @ 200 mls/hr IV.SIG Q12H MAHIN Rx#:[id number] Oral 240 / 240 Other 700 / 700 Output: Wound Drainage 75 / 75 25 / 25 # 1 Right Lateral Thigh 75 / 75 25 / 25 Narrative: GENERAL: This is a well-nourished, well-developed patient, in no apparent distress. CARDIOVASCULAR: Regular rate and rhythm without murmurs, gallops, or rubs. RESPIRATORY: Clear to auscultation. Breath sounds equal bilaterally. No wheezes , rales, or rhonchi. GASTROINTESTINAL: Abdomen soft, non-tender, nondistended. Normal active bowel sounds MUSCULOSKELETAL: Incision clean, GREGORY with serosanguineous drainage. NEURO: Alert & Oriented x4 to person, place, time, situation. Moves all ext x4 Results Procedures completed during hospitalization: Excision of Right thigh mass with GREGORY drain in place will follow General Surgery 07/02/18 for removal of GREGORY drain. Labs on day of discharge: Labs from last 24 hours 06/27/18 06/27/18 09:18 09:18 WBC 5.5 RBC 4.35 L Hgb 13.0 Hct 39.3 MCV 90.2 MCH 30.0 MCHC 33.2 RDW 13.7 Plt Count 246 MPV 8.8 Neut % (Auto) 78.4 H Lymph % (Auto) 9.2 [place] % (Auto) 10.8 H Eos % (Auto) 1.2 Baso % (Auto) 0.4 Neut # (Auto) 4.3 Lymph # (Auto) 0.5 L [place] # (Auto) 0.6 Eos # (Auto) 0.1 Baso # (Auto) 0.0 WBC Differential . Differential Comment Auto diff final Sodium 142 Potassium 3.5 Chloride 105 Carbon Dioxide 27.0 Anion Gap 10 BUN 8 Creatinine 0.82 Estimated GFR Greater than 89 Random Glucose 122 H Calcium 8.5 Total Bilirubin 0.7 AST 14 L ALT 15 Alkaline Phosphatase 59 Total Protein 6.5 D Albumin 3.4 D Preliminary micro results at discharge 06/26/18 11:40 Wound Culture - Preliminary Wound - Thigh Heavy growth normal skin [place] at 24 hours Microbiology 06/26/18 11:40 Wound - Thigh Gram Stain - Final 06/26/18 11:40 Other Fungal Smear - Final No fungal elements seen - Impressions ITS Impressions Femur CT 06/25/18 18:53 CONCLUSION: 1. Greater than 16 cm subcutaneous lesion in the lateral thigh contains an air- fluid level and multiple flecks of gas. The findings suggest this lesion may be infected or necrotic. Chest X-Ray 06/25/18 18:54 CONCLUSION: The lungs are clear. Discharge Plan - Discharge Disposition Patient Disposition: 01 Discharge Home - Discharge Condition Condition: Good - Discharge Order Discharge Orders: Discharge Order (Routine); Ordered 06/27/18 Ordered By: Warren Blandon - Discharge Details Anticipated Discharge Date: 06/27/18 Discharge Comment: Follow up with General import/export specialist Doctor Abdon Castro scheduled for 07/02/18 - Physicians Team Primary Care Provider: UNKNOWN, Attending Provider: Warren Blandon Other Providers: Abdon Castro MD
== END 2018-06-27 17:28 | disposition home or self-care (01) ==
LOC: NEPC 15:03 → NEDA 23:34 → INTOOBSV 23:34 → NEDH 06-26 04:53 → N07 06-26 14:37
PROVIDERS: ADMIT Internal Medicine; ATTEND Internal Medicine